=== PATIENT | female | born 1985 | race Caucasian/White ===

== ENCOUNTER 2017-09-02 08:28 | Emergency (ER) | payer OTHER ==
[~2017-09-02] VITALS: Ht 170.2 cm; Wt 79.4 kg
[~2017-09-02 08:28] MED LIST: ACETAMINOPHEN-1 EAC1 PO; ACTICIN 5% CREA60 G1 TOP; ADDERALL 15 MG15 MG; ADVIL100 M3 PO; BACTRIM DS TAB1 EACH PO; CALCIUM 600 +1 EA11 PO; CEFDINIR300 MG PO; CIPRO250 M1 PO; CIPRO500 MG PO; CIPROFLOXACIN500 M1 PO; CIPROFLOXACIN500 M3 PO; COLACE100 MG PO; ED-SPAZ0.125 MG PO; FLAGYL500 MG PO; FLOMAX0.4 MG PO; HYDROCODONE-AP1 EAC6 PO; HYDROCODONE-APA1 TA1 PO; HYDROXYZINE HCL10 M1 PO; HYDROXYZINE HCL25 M1 PO; IBUPROFEN 200200 M1 PO; IBUPROFEN 400400 M1 PO; KEFLEX500 MG PO; LEVAQUIN 500 M500 M2 PO; MACROBID 100 M100 M1 PO; MULTIVITAMINS PO; NAPROSYN500 MG PO; NEURONTIN 300300 M1 PO; NEURONTIN600 MG; NOHOMEMEDICATIONS; NORCO 10-325 T1 EAC1 PO; NORCO 10-325 T1 EACH PO; NORCO 5-325 TA1 EAC1 PO; ONDANSETRON HCL4 M2 PO; PANTOPRAZOLE SO40 MG; PERCOCET 5-3251 EACH PO; PHENAZOPYRIDIN200 M2 PO; PHENERGAN 25 MG25 M1 PO; PREDNISONE50 MG PO; PRENATAL; PROMETHAZINE12.5 M1 PO; PROMS25 WY RECTAL; ULTRAM50 MG PO; ZOFRAN ODT4 MG PO; ZOFRAN4 MG PO
[2017-09-02] MEDS ORDERED: ADDERALL 10 MG10 MG PO (08:46)
[2017-09-02] MEDS ORDERED: BACTRIM DS TAB1 EACH PO (09:36)
[2017-09-02] MEDS ORDERED: IBUPROFEN 800800 MG PO (09:36)
[2017-09-02 10:04] VITALS: BP 112/89
== END 2017-09-02 10:05 | disposition home or self-care (01) ==
LOC: M.ERS 08:28
DX: L03.115 Cellulitis of right lower limb (principal); Z90.49 Acquired absence of other specified parts of digestive tract; Z87.442 Personal history of urinary calculi; Z88.1 Allergy status to other antibiotic agents; Z87.891 Personal history of nicotine dependence

== ENCOUNTER 2018-06-04 22:35 | Emergency (ER) | payer OTHER ==
[~2018-06-04] VITALS: Ht 170.2 cm; Wt 88.5 kg
[~2018-06-04 22:35] MED LIST changes: +ADDERALL 10 MG10 MG PO; +IBUPROFEN 800800 MG PO
[2018-06-04] MEDS ORDERED: PREDNISONE50 MG PO (23:15)
[2018-06-04] MEDS ORDERED: ZPAK PO (23:15)
[2018-06-04] MEDS ORDERED: HYDROCODONE-CHLO5 ML PO (23:15)
[2018-06-04] MEDS ORDERED: VENTOLIN HFA 1818 GM INH (23:15)
[2018-06-04 23:31] LABS: INFLUENZA A ANTIGEN None Detected (None Detect); INFLUENZA B ANTIGEN None Detected (None Detect)
[2018-06-04 23:55] VITALS: BP 108/63
== END 2018-06-04 23:58 | disposition home or self-care (01) ==
LOC: M.ERS 22:35
PROVIDERS: Nurse Practitioner Family
DX: J40 Bronchitis, not specified as acute or chronic (principal); J18.9 Pneumonia, unspecified organism; Z87.891 Personal history of nicotine dependence; Z88.1 Allergy status to other antibiotic agents; Z88.8 Allergy status to other drugs, medicaments and biological substances; Z90.49 Acquired absence of other specified parts of digestive tract; Z87.442 Personal history of urinary calculi

== ENCOUNTER 2018-09-14 20:17 | Emergency (ER) | payer OTHER ==
[~2018-09-14] VITALS: Ht 170.2 cm; Wt 86.6 kg
[~2018-09-14 20:17] MED LIST changes: +HYDROCODONE-CHLO5 ML PO; +VENTOLIN HFA 1818 GM INH; +ZPAK PO
[2018-09-14] MEDS ORDERED: ZPAK PO (21:27)
[2018-09-14 21:36] VITALS: BP 120/87
== END 2018-09-14 21:36 | disposition home or self-care (01) ==
LOC: M.ERS 20:17
DX: J18.9 Pneumonia, unspecified organism (principal); M79.18 Myalgia, other site; Z87.891 Personal history of nicotine dependence; Z88.8 Allergy status to other drugs, medicaments and biological substances; Z88.0 Allergy status to penicillin; Z90.49 Acquired absence of other specified parts of digestive tract; Z90.5 Acquired absence of kidney; Z87.442 Personal history of urinary calculi

== ENCOUNTER 2018-10-22 23:44 | Emergency (ER) | payer OTHER ==
[~2018-10-22] VITALS: Ht 170.2 cm; Wt 86.6 kg
[2018-10-23 00:31] LABS: ABSOLUTE BASOPHILS 0.1 thou/uL (0.0-0.2); ABSOLUTE EOSINOPHILS 0.2 thou/uL (0.0-0.7); ABSOLUTE LYMPHOCYTES 2.7 thou/uL (0.8-5.3); ABSOLUTE MONOCYTES 0.9 thou/uL (0.0-1.2); ABSOLUTE NEUTROPHILS 8.6 thou/uL (1.6-8.1); BASOPHILS 0.6 %; EOSINOPHILS 1.4 %; HEMATOCRIT 44.2 % (37.0-47.0); HEMOGLOBIN 14.8 gm/dL (12.0-15.0); LYMPHOCYTES 21.8 %; MCH 31.3 pg (26.0-34.0); MCHC 33.4 g/dL (28.0-37.0); MCV 93.5 fL (80.0-100.0); MONOCYTES 7.4 %; MPV 10.1 fl. (7.2-11.1); NUCLEATED RBCS 0 /100WBC; PLATELET COUNT* 348 thou/uL (150-400); POLYS 68.8 %; RBC 4.73 mil/uL (4.20-5.00); WBC 12.4 thou/uL (4.0-11.0)
[2018-10-23 00:37] LABS: CALCIUM 9.1 mg/dL (8.5-10.1); CREATININE 0.9 mg/dL (0.6-1.3); POTASSIUM 3.7 mmol/L (3.5-5.1)
[2018-10-23 00:42] LABS: ALBUMIN 4.1 g/dL (3.4-5.0); TOTAL BILIRUBIN 0.4 mg/dL (<0.1-1.0); TOTAL PROTEIN 8.1 g/dL (6.4-8.2)
[2018-10-23 01:26] LABS: URINE BLOOD NEGATIVE (Negative); URINE CLARITY CLEAR; URINE COLOR YELLOW; URINE GLUCOSE-RANDOM NEGATIVE (Negative); URINE KETONES TRACE (Negative); URINE LEUKOCYTES-REFLEX NEGATIVE (Negative); URINE NITRITE-REFLEX NEGATIVE (Negative); URINE PROTEIN TRACE (Negative); URINE UROBILINOGEN 0.2 E.U./dl (0.2-1.0)
[2018-10-23 01:31] LABS: ICTOTEST (BILI CONFIRMATORY) Negative (Negative); URINE BILIRUBIN 1+ (Negative)
[2018-10-23] MEDS ORDERED: PEPCID40 MG PO (02:27)
[2018-10-23] MEDS ORDERED: HYDROCODON-ACE1 EAC7 PO (02:27)
[2018-10-23] MEDS ORDERED: ZOFRAN4 MG PO (02:27)
[2018-10-23 02:38] VITALS: BP 120/57
== END 2018-10-23 02:39 | disposition home or self-care (01) ==
LOC: M.ERS 23:44
PROVIDERS: Emergency Medicine
DX: R10.9 Unspecified abdominal pain (principal); R11.2 Nausea with vomiting, unspecified; Z87.891 Personal history of nicotine dependence; Z88.1 Allergy status to other antibiotic agents; Z88.8 Allergy status to other drugs, medicaments and biological substances; Z90.49 Acquired absence of other specified parts of digestive tract; Z87.442 Personal history of urinary calculi

== ENCOUNTER 2018-12-30 19:06 | Emergency (ER) | payer OTHER ==
[~2018-12-30] VITALS: Ht 170.2 cm; Wt 82.1 kg
[~2018-12-30 19:06] MED LIST changes: +HYDROCODON-ACE1 EAC7 PO; +PEPCID40 MG PO
[2018-12-30 19:16] VITALS: BP 129/87
[2018-12-30] MEDS ORDERED: TESSALON PERLE100 MG PO (19:41)
[2018-12-30] MEDS ORDERED: PROMETHAZINE V120 ML PO (19:41)
[2018-12-30] MEDS ORDERED: PROAIR HFA8.5 GM INH (19:41)
[2018-12-30] MEDS ORDERED: ZPAK PO (19:41)
[2018-12-30] MEDS ORDERED: MEDROLDOSEPACK PO (19:41)
== END 2018-12-30 19:53 | disposition home or self-care (01) ==
LOC: M.ERS 19:06
DX: J20.9 Acute bronchitis, unspecified (principal); Z90.49 Acquired absence of other specified parts of digestive tract; Z87.442 Personal history of urinary calculi; Z90.5 Acquired absence of kidney; Z88.0 Allergy status to penicillin; Z87.891 Personal history of nicotine dependence

== ENCOUNTER 2019-04-27 00:41 | Emergency (ER) | payer OTHER ==
[~2019-04-27] VITALS: Ht 170.2 cm; Wt 81.2 kg
[~2019-04-27 00:41] MED LIST changes: +MEDROLDOSEPACK PO; +PROAIR HFA8.5 GM INH; +PROMETHAZINE V120 ML PO; +TESSALON PERLE100 MG PO
[2019-04-27 01:17] LABS: INFLUENZA A ANTIGEN Negative (Negative); INFLUENZA B ANTIGEN Negative (Negative)
[2019-04-27] MEDS ORDERED: PROAIR HFA8.5 GM INH (01:36)
[2019-04-27] MEDS ORDERED: PROMETH-CODEIN 65 ML PO (01:36)
[2019-04-27] MEDS ORDERED: PREDNISONE50 MG PO (01:36)
[2019-04-27 01:42] VITALS: BP 122/54
== END 2019-04-27 01:42 | disposition home or self-care (01) ==
LOC: M.ERS 00:41
PROVIDERS: Emergency Medicine
DX: J06.9 Acute upper respiratory infection, unspecified (principal); Z90.49 Acquired absence of other specified parts of digestive tract; Z87.442 Personal history of urinary calculi; Z87.891 Personal history of nicotine dependence; Z88.0 Allergy status to penicillin; Z88.1 Allergy status to other antibiotic agents

== ENCOUNTER 2019-08-04 20:27 | Emergency (ER) | payer OTHER ==
[~2019-08-04] VITALS: Ht 170.2 cm; Wt 83.9 kg
[~2019-08-04 20:27] MED LIST changes: +PROMETH-CODEIN 65 ML PO
[2019-08-04 21:08] LABS: INFLUENZA A ANTIGEN Negative (Negative); INFLUENZA B ANTIGEN Negative (Negative)
[2019-08-04] MEDS ORDERED: ZPAK PO (21:16)
[2019-08-04] MEDS ORDERED: PROMETH-CODEIN 65 ML PO (21:16)
[2019-08-04 21:28] VITALS: BP 150/90
== END 2019-08-04 21:29 | disposition home or self-care (01) ==
LOC: M.ERS 20:27
PROVIDERS: Nurse Practitioner Family
DX: J03.90 Acute tonsillitis, unspecified (principal); J06.9 Acute upper respiratory infection, unspecified; Z87.891 Personal history of nicotine dependence; Z88.1 Allergy status to other antibiotic agents; Z90.49 Acquired absence of other specified parts of digestive tract; Z87.442 Personal history of urinary calculi

== ENCOUNTER 2019-11-18 21:37 | Emergency (ER) | payer OTHER | END 2019-11-18 22:36 | disposition home or self-care (01) | LOC: M.ERS 21:37 | DX: B34.9 Viral infection, unspecified (principal); Z87.891 Personal history of nicotine dependence; Z88.1 Allergy status to other antibiotic agents; Z88.8 Allergy status to other drugs, medicaments and biological substances; Z90.49 Acquired absence of other specified parts of digestive tract; Z87.442 Personal history of urinary calculi ==

== ENCOUNTER 2020-02-09 00:57 | Emergency (ER) | payer OTHER ==
[~2020-02-09] VITALS: Ht 165.1 cm; Wt 83.9 kg
[~2020-02-09 00:57] MED LIST changes: +TESSALON PERLE100 M1 PO
[2020-02-09 01:27] LABS: ABSOLUTE BASOPHILS 0.1 thou/uL (0.0-0.2); ABSOLUTE EOSINOPHILS 0.2 thou/uL (0.0-0.7); ABSOLUTE LYMPHOCYTES 3.3 thou/uL (0.8-5.3); ABSOLUTE NEUTROPHILS 8.9 thou/uL (1.6-8.1); BASOPHILS 0.8 %; EOSINOPHILS 1.4 %; HEMATOCRIT 40.5 % (37.0-47.0); HEMOGLOBIN 13.7 gm/dL (12.0-15.0); LYMPHOCYTES 24.2 %; MCH 32.5 pg (26.0-34.0); MCHC 33.9 g/dL (28.0-37.0); MCV 96.1 fL (80.0-100.0); MONOCYTES 7.6 %; MPV 9.8 fl. (7.2-11.1); NUCLEATED RBCS 0 /100WBC; PLATELET COUNT* 293 thou/uL (150-400); RBC 4.21 mil/uL (4.20-5.00); RDW-CV 13.5 % (10.5-14.5); WBC 13.5 thou/uL (4.0-11.0)
[2020-02-09 01:33] LABS: CALCIUM 8.4 mg/dL (8.5-10.1); CREATININE 1.1 mg/dL (0.6-1.3)
[2020-02-09 01:35] LABS: POTASSIUM 2.7 mmol/L (3.5-5.1)
[2020-02-09 01:38] LABS: ALBUMIN 3.7 g/dL (3.4-5.0); TOTAL BILIRUBIN 0.3 mg/dL (<0.1-1.0); TOTAL PROTEIN 7.2 g/dL (6.4-8.2)
[2020-02-09] MEDS ORDERED: POTASSIUM20 PO (03:10)
[2020-02-09] MEDS ORDERED: ZOFRAN ODT4 MG SUBLING (03:10)
[2020-02-09 03:25] VITALS: BP 102/62
== END 2020-02-09 03:25 | disposition home or self-care (01) ==
LOC: M.ERS 00:57
PROVIDERS: Family Medicine
DX: R11.2 Nausea with vomiting, unspecified (principal); R10.84 Generalized abdominal pain; R42 Dizziness and giddiness; E87.6 Hypokalemia; Z87.442 Personal history of urinary calculi; Z88.1 Allergy status to other antibiotic agents; Z87.891 Personal history of nicotine dependence; Z90.49 Acquired absence of other specified parts of digestive tract

== ENCOUNTER 2020-08-18 20:14 | Emergency (ER) | payer OTHER ==
[~2020-08-18] VITALS: Ht 170.2 cm; Wt 88.5 kg
[~2020-08-18 20:14] MED LIST changes: +POTASSIUM20 PO; +ZOFRAN ODT4 MG SUBLING
[2020-08-18] MEDS ORDERED: MACROBID 100 M100 MG PO (20:33)
[2020-08-18] MEDS ORDERED: ZPAK PO (20:43)
[2020-08-18] MEDS ORDERED: PROAIR HFA8.5 GM INH (20:43)
[2020-08-18] MEDS ORDERED: PREDNISONE 20 M20 MG PO (20:43)
[2020-08-18] MEDS ORDERED: PROMETHAZI6.25 MG/5 PO (20:43)
[2020-08-18 21:14] VITALS: BP 135/110
== END 2020-08-18 21:14 | disposition home or self-care (01) ==
LOC: M.ERS 20:14
DX: J20.9 Acute bronchitis, unspecified (principal); Z90.49 Acquired absence of other specified parts of digestive tract; Z87.442 Personal history of urinary calculi; Z90.5 Acquired absence of kidney; Z79.899 Other long term (current) drug therapy; Z79.2 Long term (current) use of antibiotics; Z88.1 Allergy status to other antibiotic agents; Z87.891 Personal history of nicotine dependence

== ENCOUNTER 2021-01-06 14:17 | Emergency (ER) | payer BC ==
[~2021-01-06] VITALS: Ht 170.2 cm; Wt 88.5 kg
[~2021-01-06 14:17] MED LIST changes: +MACROBID 100 M100 MG PO; +PREDNISONE 20 M20 MG PO; +PROMETHAZI6.25 MG/5 PO
[2021-01-06 14:24] VITALS: BP 137/76
[2021-01-06] MEDS ORDERED: TRIAMCINOLONE A80 G2 TOP (14:41)
== END 2021-01-06 14:45 | disposition home or self-care (01) ==
LOC: M.ERS 14:17
DX: T63.451A Toxic effect of venom of hornets, accidental (unintentional), initial encounter (principal); Z90.49 Acquired absence of other specified parts of digestive tract; Z79.899 Other long term (current) drug therapy; Z87.891 Personal history of nicotine dependence; Z88.0 Allergy status to penicillin; Y92.89 Other specified places as the place of occurrence of the external cause

== ENCOUNTER 2021-04-26 13:29 | Emergency (ER) | payer BC ==
[~2021-04-26] VITALS: Ht 170.2 cm; Wt 89.8 kg
[~2021-04-26 13:29] MED LIST changes: +TRIAMCINOLONE A80 G2 TOP
[2021-04-26 14:16] LABS: INFLUENZA A ANTIGEN Negative (Negative); INFLUENZA B ANTIGEN Negative (Negative)
[2021-04-26 14:29] VITALS: BP 120/85
== END 2021-04-26 14:29 | disposition home or self-care (01) ==
LOC: M.ERS 13:29
PROVIDERS: Physician Assistant
DX: U07.1 COVID-19 (principal); Z90.49 Acquired absence of other specified parts of digestive tract; Z87.442 Personal history of urinary calculi; Z79.899 Other long term (current) drug therapy; Z88.1 Allergy status to other antibiotic agents; Z87.891 Personal history of nicotine dependence